=== PATIENT | female | born 1955 | race African-American/Black ===

== ENCOUNTER 2022-09-12 00:51 | Observation (INO) | payer OTHER, MEDICARE ==
[2022-09-12 01:48] LABS: #Eosinphils 0.2 10x3/uL (0.0-0.5); #Monocytes 0.4 10x3/uL (0.0-1.1); %Basophils 0.4 % (0.0-2.0); %Eosinophils 2.7 % (0.0-6.0); %Lymphocytes 36.3 % (18.0-47.0); %Neutrophils 54.5 % (40.0-75.0); Hemoglobin 12.1 g/dL (12.0-15.5); Mean Corpuscular HGB CONC 34.9 g/dL (32.0-36.0); Mean Corpuscular Hemoglobin 30.6 pg (27.0-33.0); Mean Corpuscular Volume 87.6 fl (81.6-98.3); Mean Platelet Volume 9.1 fl (7.4-10.4); Platelet Count 328 10x3/uL (150-450); Red Blood Cell (RBC) Count 3.96 10x6/uL (3.90-5.03); White Blood Cell (WBC) Count 7.4 10x3/uL (3.5-10.5)
[2022-09-12 02:04] LABS: ALT (SGPT) 10 U/L (8-55); AST (SGOT) 16 U/L (5-34); Albumin 4.1 g/dL (3.4-4.8); Alkaline Phosphatase 108 U/L (40-110); Anion Gap 15 mmol/L (10-20); BUN (Urea Nitrogen) 22 mg/dL (9.8-20.1); Bilirubin, Total 0.2 mg/dL (0.2-1.2); Calc. Creatinine Clearance 0 mL/min (70-130); Calcium 9.3 mg/dL (7.8-10.44); Carbon Dioxide 21 mmol/L (23-31); Chloride 110 mmol/L (98-107); Estimated GFR 62; Globulin 3.1 g/dL (2.4-3.5); Glucose 90 mg/dL (80-115); Magnesium 1.9 mg/dL (1.6-2.6); Potassium 3.6 mmol/L (3.5-5.1); Protein, Total 7.2 g/dL (5.8-8.1); Sodium 142 mmol/L (136-145)
[2022-09-12] MEDS ORDERED: Aspirin Chewable 81 MG TAB ONE (02:06)
[2022-09-12] MEDS ORDERED: Nitroglycerin 0.4 MG TAB (25 Tab Bottle) SL PRN (05:44)
[2022-09-12] MEDS ORDERED: Acetaminophen 500 MG TAB PO PRN (05:45)
[2022-09-12] MEDS ORDERED: Ondansetron ODT 4 MG TAB PO PRN (05:45)
[2022-09-12] MEDS ORDERED: HYDROcodone/Acetaminophen 5/325 mg Tablet PO PRN (05:45)
[2022-09-12] MEDS ORDERED: Ondansetron PF 4 MG/2 ML Vial IVP PRN (05:45)
[2022-09-12] MEDS ORDERED: hydrALAZINE 20 MG/ML VIAL SLOW IVP PRN (05:45)
[2022-09-12] MEDS ORDERED: Nitroglycerin 2% Ointment 1 INCH/1 GM Packet TOP SCH (06:00)
[2022-09-12] MEDS ORDERED: Nitroglycerin 2% Ointment 1 INCH/1 GM Packet ONE (06:29)
[2022-09-12 07:46] LABS: ALT (SGPT) 9 U/L (8-55); AST (SGOT) 15 U/L (5-34); Albumin 3.8 g/dL (3.4-4.8); Alkaline Phosphatase 111 U/L (40-110); Anion Gap 14 mmol/L (10-20); BUN (Urea Nitrogen) 20 mg/dL (9.8-20.1); Bilirubin, Total 0.2 mg/dL (0.2-1.2); Calc. Creatinine Clearance 0 mL/min (70-130); Calcium 9.1 mg/dL (7.8-10.44); Carbon Dioxide 22 mmol/L (23-31); Cardiac Risk 4.1 (Less than 4.5); Chloride 110 mmol/L (98-107); Cholesterol 172 mg/dl (< 200 Desired); Estimated GFR 74; Globulin 3.1 g/dL (2.4-3.5); Glucose 88 mg/dL (80-115); HDL Cholesterol 42 mg/dL (>60 Neg Risk); LDL Cholesterol, Calculated 117 mg/dL; Magnesium 1.9 mg/dL (1.6-2.6); Potassium 4.2 mmol/L (3.5-5.1); Protein, Total 6.9 g/dL (5.8-8.1); Sodium 142 mmol/L (136-145); Triglycerides 65 mg/dL (Less than 150)
[2022-09-12 07:50] LABS: Troponin I Less than 0.010 ng/mL (< 0.028)
[2022-09-12] MEDS ORDERED: Enoxaparin Sodium 40 MG/0.4 ML SYRINGE SC SCH (09:00)
[2022-09-12] MEDS ORDERED: Metoprolol Tartrate 25 MG TAB PO SCH (09:00)
[2022-09-12] MEDS ORDERED: Aspirin Chewable 81 MG TAB PO SCH (09:00)
[2022-09-12] MEDS ORDERED: Losartan Potassium 50 MG TAB PO SCH (09:00)
[2022-09-12] MEDS ORDERED: Aspirin 81 mg Enteric Coated Tablet ONE (09:18)
[2022-09-12] MEDS ORDERED: Metoprolol Tartrate 25 MG TAB ONE (09:18)
[2022-09-12] MEDS ORDERED: Enoxaparin Sodium 40 MG/0.4 ML SYRINGE ONE (09:18)
[2022-09-12] MEDS ORDERED: Losartan Potassium 50 MG TAB ONE (09:19)
[2022-09-12] MEDS ORDERED: Iopamidol 370 76% 100 ML VIAL ONE (09:34)
[2022-09-12 12:30] LABS: Hemoglobin A1c 5.6 % (4.0-6.0)
[2022-09-12] MEDS ORDERED: Atorvastatin Calcium 40 MG TAB PO SCH (21:00)
== END 2022-09-12 12:00 | disposition home or self-care (01) ==
LOC: CSHERS 00:51 → CSHERHOLD 06:22
PROVIDERS: ADMIT Internal Medicine; ATTEND Internal Medicine
DX: R22.42 Localized swelling, mass and lump, left lower limb (principal); R07.89 Other chest pain; M54.9 Dorsalgia, unspecified; I10 Essential (primary) hypertension; Z79.82 Long term (current) use of aspirin; Z79.899 Other long term (current) drug therapy; Z90.49 Acquired absence of other specified parts of digestive tract; Z98.890 Other specified postprocedural states
CPT/HCPCS: 36415; 71045; 71275; 74174; 80053; 80061; 83036; 83735; 84484; 85025; 93005; 93306; G0378; J1650; Q9967

== ENCOUNTER 2024-09-08 10:00 | Emergency (ER) | payer MEDICARE ==
[2024-09-08] MEDS ORDERED: Iopamidol 300 61% 100 ML VIAL FS ONE (10:38)
[2024-09-08 10:44] LABS: Bilirubin Neg (Negative); Blood, Urine 50 (Negative); Clarity Clear (Clear); Glucose, Urine (Dipstick) Normal (Negative); Ketone, Urine Negative (Negative); Leukocyte Negative (Negative); Nitrite Negative (Negative); Protein, Urine (Dipstick) Negative (Neg-Trace); Urobilinogen Normal mg/dL (Less than 2)
[2024-09-08 11:01] LABS: CAUTI Indications for Culture Pelvic or flank pain; RBC/HPF 0-3 HPF (0-3); WBC/HPF None Seen HPF (0-3)
[2024-09-08 11:02] LABS: Bacteria/HPF Rare-Few HPF (None Seen); Squamous Epithelial 0-3 HPF (0-3); Urine Culture Reflex No No
[2024-09-08] MEDS ORDERED: Ondansetron PF 4 MG/2 ML Vial ONE (11:33)
[2024-09-08] MEDS ORDERED: Acetaminophen 500 MG TAB ONE (11:33)
[2024-09-08] MEDS ORDERED: Dicyclomine 20 MG TAB ONE (11:34)
[2024-09-08 11:47] LABS: #Basophils 0.03 10x3/uL (0.0-0.2); #Eosinophils 0.25 10x3/uL (0.0-0.5); #Monocytes 0.39 10x3/uL (0.0-1.1); #Neutrophils 2.81 10x3/uL (1.5-8.4); %Basophils 0.5 % (0.0-2.0); %Eosinophils 4.5 % (0.0-6.0); %Lymphocytes 37.7 % (18.0-47.0); %Neutrophils 50.1 % (40.0-75.0); Hematocrit 38.2 % (34.9-44.5); Hemoglobin 12.4 g/dL (12.0-15.5); Mean Corpuscular HGB CONC 32.5 g/dL (32.0-36.0); Mean Corpuscular Hemoglobin 29.2 pg (27.0-33.0); Mean Corpuscular Volume 89.9 fL (81.6-98.3); Mean Platelet Volume 9.5 fL (7.4-10.4); Platelet Count 331 10x3/uL (150-450); RBC Distribution Width 13.4 % (11.5-14.5); Red Blood Cell (RBC) Count 4.25 10x6/uL (3.90-5.03); White Blood Cell (WBC) Count 5.6 10x3/uL (3.5-10.5)
[2024-09-08 11:56] LABS: ALT (SGPT) 10 U/L (8-55); AST (SGOT) 17 U/L (5-34); Albumin 3.8 g/dL (3.4-4.8); Alkaline Phosphatase 112 U/L (40-110); Anion Gap 14 mmol/L (10-20); BUN (Urea Nitrogen) 10 mg/dL (9.8-20.1); Bilirubin, Total 0.4 mg/dL (0.2-1.2); Calc. Creatinine Clearance 0 mL/min (70-130); Calcium 9.4 mg/dL (7.8-10.44); Carbon Dioxide 25 mmol/L (23-31); Chloride 107 mmol/L (98-107); Estimated GFR 71; Globulin 3.8 g/dL (2.4-3.5); Glucose 98 mg/dL (80-115); Lipase 14 U/L (8-78); Protein, Total 7.6 g/dL (5.8-8.1); Sodium 142 mmol/L (136-145)
== END 2024-09-08 14:05 | disposition home or self-care (01) ==
LOC: CSHERS 10:00
DX: R10.9 Unspecified abdominal pain (principal); R19.7 Diarrhea, unspecified; R11.0 Nausea; I10 Essential (primary) hypertension
CPT/HCPCS: 74177; 80053; 81001; 83690; 85025; J2405; 96361; 96374; Q9967

== ENCOUNTER 2024-10-20 09:43 | Emergency (ER) | payer MEDICARE ==
[2024-10-20 10:32] LABS: #Basophils Less than 0.03 10x3/uL (0.0-0.2); #Monocytes 0.38 10x3/uL (0.0-1.1); #Neutrophils 3.27 10x3/uL (1.5-8.4); %Basophils 0.3 % (0.0-2.0); %Eosinophils 3.4 % (0.0-6.0); %Lymphocytes 33.7 % (18.0-47.0); %Monocytes 6.5 % (0.0-10.0); %Neutrophils 55.6 % (40.0-75.0); Hematocrit 35.6 % (34.9-44.5); Hemoglobin 11.8 g/dL (12.0-15.5); Mean Corpuscular HGB CONC 33.1 g/dL (32.0-36.0); Mean Corpuscular Hemoglobin 29.1 pg (27.0-33.0); Mean Corpuscular Volume 87.9 fL (81.6-98.3); Mean Platelet Volume 8.8 fL (7.4-10.4); Platelet Count 325 10x3/uL (150-450); RBC Distribution Width 13.1 % (11.5-14.5); Red Blood Cell (RBC) Count 4.05 10x6/uL (3.90-5.03); White Blood Cell (WBC) Count 5.88 10x3/uL (3.5-10.5)
[2024-10-20 10:45] LABS: Anion Gap 10 mmol/L (10-20); BUN (Urea Nitrogen) 12 mg/dL (9.8-20.1); Calc. Creatinine Clearance 0 mL/min (70-130); Calcium 8.6 mg/dL (7.8-10.44); Carbon Dioxide 23 mmol/L (23-31); Chloride 111 mmol/L (98-107); Estimated GFR 86; Glucose 99 mg/dL (80-115); Potassium 3.4 mmol/L (3.5-5.1); Sodium 141 mmol/L (136-145)
[2024-10-20] MEDS ORDERED: Azithromycin 250 MG TAB ONE (12:19)
== END 2024-10-20 12:27 | disposition home or self-care (01) ==
LOC: CSHERS 09:43
DX: J18.9 Pneumonia, unspecified organism (principal); I10 Essential (primary) hypertension
CPT/HCPCS: 36415; 71046; 80048; 85025; 87428